=== PATIENT | male | born 2000 | race Hispanic/Latino ===

== ENCOUNTER 2018-11-24 00:51 | Emergency (ER) | payer SELFPAY ==
[~2018-11-24] VITALS: Ht 182.9 cm; Wt 90.7 kg
[2018-11-24] MEDS ORDERED: ACETAMINOPHEN 325 MG TAB PO ONE (01:15)
[2018-11-24 01:16] LABS: INFLUENZAE A&B ANTIGEN (RAPID) NEGATIVE (NEGATIVE); STREPTOCOCCUS GRP A ANTIGEN NEGATIVE (NEGATIVE)
--- NOTE | 2018-11-24 02:02 | Diagnostic Imaging Report ---
CHEST 2 VIEWS, Technique: CHEST 2 VIEWS Comparison: None Clinical history: Fever DISCUSSION: Low lung volumes with mild bibasilar vascular crowding. Cardiomediastinal silhouette is within normal limits. No effusion or pneumothorax. IMPRESSION: No acute abnormality Signed by: Dr Pamela Kendrick MD on 11/24/2018 1:58 AM
[2018-11-24 02:39] VITALS: BP 124/80
== END 2018-11-24 02:47 | disposition home or self-care (01) ==
LOC: ER 00:51
DX: R07.89 Other chest pain (principal); R50.9 Fever, unspecified; R19.7 Diarrhea, unspecified; B34.9 Viral infection, unspecified
CPT/HCPCS: 71046; 83518; 87070; 87400; 93005; 94640; 99283